=== PATIENT | female | born 1940 | race Caucasian/White ===

== ENCOUNTER 2021-04-22 15:24 | Emergency (ER) | payer MEDICARE ==
[2021-04-22 16:18] LABS: #Eosinphils 0.2 10x3/uL (0.0-0.5); #Monocytes 0.8 10x3/uL (0.0-1.1); #Neutrophils 4.4 10x3/uL (1.5-8.4); %Basophils 0.5 % (0.0-2.0); %Eosinophils 2.8 % (0.0-6.0); %Lymphocytes 29.9 % (18.0-47.0); %Neutrophils 56.3 % (40.0-75.0); Hemoglobin 11.6 g/dL (12.0-15.5); Mean Corpuscular HGB CONC 32.9 g/dL (32.0-36.0); Mean Corpuscular Hemoglobin 30.6 pg (27.0-33.0); Mean Corpuscular Volume 93.1 fl (81.6-98.3); Mean Platelet Volume 9.9 fl (7.4-10.4); Platelet Count 315 10x3/uL (150-450); RBC Distribution Width 13.4 % (11.5-14.5); Red Blood Cell (RBC) Count 3.79 10x6/uL (3.90-5.03); White Blood Cell (WBC) Count 7.8 10x3/uL (3.5-10.5)
[2021-04-22 16:30] LABS: ALT (SGPT) 19 U/L (8-55); AST (SGOT) 25 U/L (5-34); Albumin 4.3 g/dL (3.4-4.8); Alkaline Phosphatase 95 U/L (40-110); Anion Gap 19 mmol/L (10-20); BUN (Urea Nitrogen) 19 mg/dL (9.8-20.1); Bilirubin, Total 0.6 mg/dL (0.2-1.2); Calc. Creatinine Clearance 0 mL/min (70-130); Calcium 9.3 mg/dL (7.8-10.44); Carbon Dioxide 20 mmol/L (23-31); Chloride 104 mmol/L (98-107); Glucose 126 mg/dL (83-110); Potassium 4.5 mmol/L (3.5-5.1); Protein, Total 7.3 g/dL (5.8-8.1); Sodium 138 mmol/L (136-145)
[2021-04-22 17:29] LABS: Bilirubin Neg (Negative); Blood, Urine Negative (Negative); Clarity Clear (Clear); Glucose, Urine (Dipstick) Normal (Negative); Ketone, Urine Negative (Negative); Leukocyte Negative (Negative); Nitrite Negative (Negative); Protein, Urine (Dipstick) 30 mg/dl (Neg-Trace); Urobilinogen Normal mg/dL (Less than 2)
[2021-04-22 18:06] LABS: Bacteria/HPF Rare-Few HPF (None Seen); RBC/HPF 0-3 HPF (0-3); Squamous Epithelial 0-3 HPF (0-3); WBC/HPF 0-3 HPF (0-3)
== END 2021-04-22 17:40 | disposition home or self-care (01) ==
LOC: CSHERS 15:24
DX: R06.02 Shortness of breath (principal); I10 Essential (primary) hypertension; E11.9 Type 2 diabetes mellitus without complications; E03.9 Hypothyroidism, unspecified
CPT/HCPCS: 80053; 81003; 81015; 83880; 84484; 85025; 93005

== ENCOUNTER 2022-05-15 16:22 | Inpatient (IN) | payer MEDICARE ==
[2022-05-15] MEDS ORDERED: Benzonatate 100 MG CAP PO PRN (17:03)
[2022-05-15] MEDS ORDERED: Ipratropium/Albuterol 3 ML NEB NEB PRN (17:03)
[2022-05-15] MEDS ORDERED: Ondansetron PF 4 MG/2 ML Vial IVP PRN (17:08)
[2022-05-15] MEDS ORDERED: Ondansetron ODT 4 MG TAB PO PRN (17:08)
[2022-05-15] MEDS ORDERED: Senokot S 8.6-50 MG TAB PO PRN (17:08)
[2022-05-15] MEDS ORDERED: Acetaminophen 325 MG TAB PO PRN (17:08)
[2022-05-15] MEDS ORDERED: HumaLOG 300 UNITS/3 ML VIAL SC PRN ×2 (17:13)
[2022-05-15] MEDS ORDERED: Dextrose 50% Abboject 50 ML SYRINGE SLOW IVP PRN (17:13)
[2022-05-15] MEDS ORDERED: Dextrose 5% in Water 1,000 ML IV PRN (17:13)
[2022-05-15] MEDS ORDERED: GUAIFENESIN SF SOLN 200 MG/10 ML UDCUP PO PRN (17:17)
[2022-05-15 17:55] LABS: CKMB 2.4 ng/mL (0-6.6)
[2022-05-15 20:00] LABS: Troponin I 0.062 ng/mL (< 0.028)
[2022-05-15] MEDS: Ipratropium/Albuterol 3 ML NEB NEB SCH (20:36)
[2022-05-15] MEDS ORDERED: Carvedilol 25 MG TAB PO SCH (21:00)
[2022-05-15] MEDS: Atorvastatin Calcium 40 MG TAB PO SCH (21:04)
[2022-05-15] MEDS: Amlodipine 5 MG TAB PO SCH (21:04)
[2022-05-15] MEDS: Amiodarone 200 MG TAB PO SCH (21:04)
[2022-05-16] MEDS: Doxycycline 100 MG in Sodium Chloride 0.9% 100 ML IVPB SCH ×2 (00:54→13:05)
[2022-05-16 02:05] LABS: Legionella Urinary Ag Negative (Negative); Strep pneumo Urine Ag NEGATIVE (NEGATIVE)
[2022-05-16 04:04] LABS: #Monocytes 1.1 10x3/uL (0.0-1.1); #Neutrophils 10.7 10x3/uL (1.5-8.4); %Basophils 0.2 % (0.0-2.0); %Eosinophils 0.2 % (0.0-6.0); %Lymphocytes 10.2 % (18.0-47.0); %Monocytes 7.9 % (0.0-10.0); %Neutrophils 80.5 % (40.0-75.0); Hemoglobin 11.6 g/dL (12.0-15.5); Mean Corpuscular HGB CONC 34.3 g/dL (32.0-36.0); Mean Corpuscular Hemoglobin 30.8 pg (27.0-33.0); Mean Corpuscular Volume 89.7 fl (81.6-98.3); Platelet Count 167 10x3/uL (150-450); Red Blood Cell (RBC) Count 3.77 10x6/uL (3.90-5.03); White Blood Cell (WBC) Count 13.3 10x3/uL (3.5-10.5)
[2022-05-16 04:22] LABS: ALT (SGPT) 11 U/L (8-55); AST (SGOT) 18 U/L (5-34); Albumin 3.1 g/dL (3.4-4.8); Alkaline Phosphatase 48 U/L (40-110); Anion Gap 11 mmol/L (10-20); BUN (Urea Nitrogen) 20 mg/dL (9.8-20.1); Bilirubin, Total 1.1 mg/dL (0.2-1.2); Calc. Creatinine Clearance 97 mL/min (70-130); Calcium 8.5 mg/dL (7.8-10.44); Carbon Dioxide 23 mmol/L (23-31); Chloride 104 mmol/L (98-107); Estimated GFR 53; Globulin 2.4 g/dL (2.4-3.5); Glucose 120 mg/dL (83-110); Potassium 3.2 mmol/L (3.5-5.1); Protein, Total 5.5 g/dL (5.8-8.1); Sodium 135 mmol/L (136-145)
[2022-05-16] MEDS ORDERED: Levothyroxine Sodium 100 MCG TAB ONE (06:23)
[2022-05-16] MEDS: Levothyroxine Sodium 100 MCG TAB PO SCH (06:28)
[2022-05-16] MEDS: Ipratropium/Albuterol 3 ML NEB NEB SCH ×4 (08:05→19:09)
[2022-05-16] MEDS: Amlodipine 5 MG TAB PO SCH ×2 (08:18→21:41)
[2022-05-16] MEDS: Lisinopril 10 MG TAB PO SCH (08:18)
[2022-05-16] MEDS ORDERED: Carvedilol 6.25 MG TAB PO SCH (09:00)
[2022-05-16] MEDS ORDERED: Apixaban 5 MG TAB PO SCH (11:15)
[2022-05-16] MEDS: cefTRIAXone\\ROCEPHIN 1 GM in Sodium Chloride 0.9% 100 ML IVPB SCH (13:05)
[2022-05-16] MEDS ORDERED: Potassium Chloride 20 MEQ TAB PO SCH (15:15)
[2022-05-16] MEDS: Carvedilol 12.5 MG TAB PO SCH (16:32)
[2022-05-16] MEDS: Atorvastatin Calcium 40 MG TAB PO SCH (21:40)
[2022-05-16] MEDS: Apixaban 5 MG TAB PO SCH (21:40)
[2022-05-16] MEDS: Amiodarone 200 MG TAB PO SCH (21:42)
[2022-05-17] MEDS: Doxycycline 100 MG in Sodium Chloride 0.9% 100 ML IVPB SCH ×2 (01:41→10:51)
[2022-05-17 04:00] LABS: Anion Gap 16 mmol/L (10-20); BUN (Urea Nitrogen) 16 mg/dL (9.8-20.1); Calc. Creatinine Clearance 107 mL/min (70-130); Calcium 8.9 mg/dL (7.8-10.44); Carbon Dioxide 20 mmol/L (23-31); Chloride 106 mmol/L (98-107); Estimated GFR 60; Glucose 114 mg/dL (83-110); Potassium 3.6 mmol/L (3.5-5.1); Sodium 138 mmol/L (136-145)
[2022-05-17 04:06] LABS: #Eosinphils 0.2 10x3/uL (0.0-0.5); #Monocytes 0.8 10x3/uL (0.0-1.1); #Neutrophils 7.5 10x3/uL (1.5-8.4); %Basophils 0.2 % (0.0-2.0); %Eosinophils 2.3 % (0.0-6.0); %Lymphocytes 12.3 % (18.0-47.0); %Monocytes 7.7 % (0.0-10.0); %Neutrophils 76.8 % (40.0-75.0); Hemoglobin 11.7 g/dL (12.0-15.5); Mean Corpuscular HGB CONC 34.2 g/dL (32.0-36.0); Mean Corpuscular Hemoglobin 30.2 pg (27.0-33.0); Mean Corpuscular Volume 88.4 fl (81.6-98.3); Mean Platelet Volume 10.2 fl (7.4-10.4); Platelet Count 170 10x3/uL (150-450); RBC Distribution Width 13.6 % (11.5-14.5); Red Blood Cell (RBC) Count 3.87 10x6/uL (3.90-5.03); White Blood Cell (WBC) Count 9.8 10x3/uL (3.5-10.5)
[2022-05-17] MEDS ORDERED: Levothyroxine Sodium 100 MCG TAB ONE (05:16)
[2022-05-17] MEDS: Levothyroxine Sodium 100 MCG TAB PO SCH (05:30)
[2022-05-17 06:33] VITALS: BMI 24.2
[2022-05-17] MEDS: Ipratropium/Albuterol 3 ML NEB NEB SCH ×2 (07:35→10:45)
[2022-05-17] MEDS: Amlodipine 5 MG TAB PO SCH (08:51)
[2022-05-17] MEDS: Apixaban 5 MG TAB PO SCH (08:51)
[2022-05-17] MEDS: Carvedilol 12.5 MG TAB PO SCH (08:51)
[2022-05-17] MEDS: Lisinopril 10 MG TAB PO SCH (08:51)
[2022-05-17] MEDS ORDERED: Apixaban 2.5 MG TAB PO SCH (09:00)
[2022-05-17] MEDS: cefTRIAXone\\ROCEPHIN 1 GM in Sodium Chloride 0.9% 100 ML IVPB SCH (10:51)
[2022-05-17 13:03] VITALS: BP 197/75; TEMP 97.1
[2022-05-17] MEDS ORDERED: Carvedilol 25 MG TAB PO SCH (17:00)
== END 2022-05-17 13:45 | disposition home or self-care (01) | DRG 871 ==
LOC: CSHERS 16:22 → CSHTELE 17:02
PROVIDERS: ADMIT Internal Medicine; ATTEND Internal Medicine
DX: A41.9 Sepsis, unspecified organism (principal); I21.A1 Myocardial infarction type 2; J18.9 Pneumonia, unspecified organism; N17.9 Acute kidney failure, unspecified; E87.1 Hypo-osmolality and hyponatremia; E78.5 Hyperlipidemia, unspecified; E03.9 Hypothyroidism, unspecified; Z20.822 Contact with and (suspected) exposure to COVID-19; E11.51 Type 2 diabetes mellitus with diabetic peripheral angiopathy without gangrene; Z96.642 Presence of left artificial hip joint; Z96.653 Presence of artificial knee joint, bilateral; E11.22 Type 2 diabetes mellitus with diabetic chronic kidney disease; E87.6 Hypokalemia; N18.30 Chronic kidney disease, stage 3 unspecified; I12.9 Hypertensive chronic kidney disease with stage 1 through stage 4 chronic kidney disease, or unspecified chronic kidney disease; I48.0 Paroxysmal atrial fibrillation; R07.81 Pleurodynia; Z91.041 Radiographic dye allergy status; Z79.899 Other long term (current) drug therapy; Z79.890 Hormone replacement therapy; Z79.82 Long term (current) use of aspirin; Z90.710 Acquired absence of both cervix and uterus; Z82.49 Family history of ischemic heart disease and other diseases of the circulatory system; Z98.890 Other specified postprocedural states; Z95.0 Presence of cardiac pacemaker
CPT/HCPCS: 36415; 36416; 71275; 80048; 80053; 82553; 83605; 83880; 84443; 84484; 85025; 87040; 87449; 87899; 93005; 93306; 94640; 94760; 99285; J0696; J3490; J7620

== ENCOUNTER 2023-03-03 11:54 | Outpatient (CLI) | payer MEDICARE | END 2023-03-03 11:55 | disposition home or self-care (01) | LOC: CSHRAD 11:54 | PROVIDERS: ATTEND Nurse Practitioner Family | DX: M54.50 Low back pain, unspecified (principal); M54.6 Pain in thoracic spine; M47.816 Spondylosis without myelopathy or radiculopathy, lumbar region; M47.814 Spondylosis without myelopathy or radiculopathy, thoracic region | CPT/HCPCS: 72072; 72100 ==